=== PATIENT | male | born 1965 | race Native Hawaiian/Other Pacific Islander ===

== ENCOUNTER → 2019-02-02 11:33 | Outpatient (CLI) | payer OTHER | END | disposition home or self-care (01) | LOC: AMB 11:33 | DX: F41.9 Anxiety disorder, unspecified (principal) ==

== ENCOUNTER 2020-10-25 15:35 | Emergency (ER) | payer OTHER ==
[~2020-10-25] VITALS: Ht 182.9 cm; Wt 81.6 kg
[2020-10-25 15:42] VITALS: BP 119/74; TEMP 98.4
[2020-10-25] MEDS ORDERED: TRAMADOL HYDROC50 MG PO (18:44)
[2020-10-25] MEDS ORDERED: AMOX875T8 PO (18:44)
== END 2020-10-25 18:50 | disposition home or self-care (01) ==
LOC: ED 15:35
DX: K08.89 Other specified disorders of teeth and supporting structures (principal); K02.9 Dental caries, unspecified
CPT/HCPCS: 96372; 99283; J0696; J1885

== ENCOUNTER 2022-10-12 05:45 | Emergency (ER) | payer OTHER ==
[~2022-10-12] VITALS: Ht 182.9 cm; Wt 83.9 kg
[~2022-10-12 05:45] MED LIST: AMOX875T8 PO; TRAMADOL HYDROC50 MG PO
[2022-10-12 05:50] VITALS: TEMP 98.9
[2022-10-12 06:13] LABS: PLATELET COUNT 138 K/uL (142-355)
[2022-10-12 06:20] LABS: POTASSIUM 3.3 mmol/L (3.6-5.2)
[2022-10-12 06:24] LABS: PARTIAL THROMBOPLASTIN TIME 25.3 SECONDS (23.9-36.7)
[2022-10-12 09:30] VITALS: BP 126/71
== END 2022-10-12 09:30 | disposition still patient (30) ==
LOC: ED 05:45
PROVIDERS: Emergency Medicine
DX: R07.9 Chest pain, unspecified (principal); J44.9 Chronic obstructive pulmonary disease, unspecified; F17.210 Nicotine dependence, cigarettes, uncomplicated
CPT/HCPCS: 36415; 80053; 82550; 83880; 84484; 85027; 85379; 85610; 85730; 87040; 93005; 94664; 96365; 96375; 99284; J1956; J2270; J2405; J2930; J3490